=== PATIENT | female | born 1995 | race Caucasian/White ===

== ENCOUNTER 2017-09-24 22:33 | Emergency (ER) | payer MEDICAID ==
[~2017-09-24] VITALS: Ht 165.1 cm; Wt 100.2 kg
[2017-09-24 22:42] VITALS: BP 140/84
== END 2017-09-24 23:14 | disposition home or self-care (01) ==
LOC: ED 23:10
DX: M54.89 Other dorsalgia (principal); R21 Rash and other nonspecific skin eruption
CPT/HCPCS: 99283

== ENCOUNTER 2018-05-27 04:19 | Emergency (ER) | payer MEDICAID ==
[~2018-05-27] VITALS: Ht 165.1 cm; Wt 102.1 kg
[2018-05-27 04:23] VITALS: BP 134/78
[2018-05-27] MEDS ORDERED: IBUPROFEN 200 MG TABLET PO ONE (05:00)
[2018-05-27] MEDS ORDERED: DEXAMETHASONE 4 MG TABLET PO ONE (05:00)
[2018-05-27] MEDS ORDERED: DEXAMETHASONE 4 MG TABLET ONE (05:01)
[2018-05-27] MEDS ORDERED: IBUPROFEN 200 MG TABLET ONE (05:01)
== END 2018-05-27 05:38 | disposition home or self-care (01) ==
LOC: ED 05:34
DX: J02.9 Acute pharyngitis, unspecified (principal)
CPT/HCPCS: 99283

== ENCOUNTER 2018-08-25 14:12 | Observation (INO) | payer MEDICAID ==
[~2018-08-25] VITALS: Ht 165.1 cm; Wt 95.8 kg
[2018-08-25] MEDS ORDERED: SODIUM CHLORIDE FLUSH 10ML SYR IVF ONE (14:30)
[2018-08-25 14:51] LABS: BASOPHILS # (AUTO) 0.05 x10^3/uL (0-0.1); BASOPHILS % (AUTO) 0 % (0-1); EOSINOPHILS # (AUTO) 0.06 x10^3/uL (0-0.4); EOSINOPHILS % (AUTO) 1 % (1-7); LYMPHOCYTES # (AUTO) 3.96 x10^3/uL (1-3.4); LYMPHOCYTES % (AUTO) 32 % (22-44); MD NO; MEAN CORPUSCULAR HEMOGLOBIN 30.8 pg (27.0-34.8); MEAN CORPUSCULAR VOLUME 90.5 fL (80-100); MEAN PLATELET VOLUME 8.2 fL (7.4-10.4); MONOCYTES # (AUTO) 0.47 x10^3/uL (0.2-0.8); MONOCYTES % (AUTO) 4 % (2-9); NEUTROPHILS # (AUTO) 7.69 x10^3/uL (1.8-6.8); NEUTROPHILS % (AUTO) 63 % (42-75); PLATELET COUNT 385 x10^3/uL (130-400); RED BLOOD COUNT 2.74 x10^6/uL (3.82-5.3)
[2018-08-25] MEDS ORDERED: SODIUM CHLORIDE 0.9%, 500ML IVBOLUS ONE (15:00)
[2018-08-25 15:03] LABS: ALANINE AMINOTRANSFERASE 25 U/L (12-78); ALBUMIN 3.1 g/dL (3.4-5.0); ANION GAP 15 mmol/L (5-15); CALCIUM 8.4 mg/dL (8.5-10.1); CHLORIDE 104 mmol/L (98-107); CREATININE 1.14 mg/dL (0.55-1.02)
[2018-08-25 15:20] LABS: INTERNATIONAL NORMALIZED RATIO 1.05 (0.93-1.1); PROTHROMBIN TIME 10.9 Seconds (9.6-11.5)
[2018-08-25 15:22] LABS: ALKALINE PHOSPHATASE 73 U/L (45-117); BILIRUBIN,TOTAL 0.4 mg/dL (0.2-1.0); TOTAL PROTEIN 6.3 g/dL (6.4-8.2)
[2018-08-25 16:10] LABS: CULTURE INDICATED? NO; MICROSCOPIC NOT IND
[2018-08-25] MEDS ORDERED: FENTANYL PF 100 MCG/2ML ONE (16:31)
[2018-08-25] MEDS ORDERED: KETAMINE 50 MG/ML, 10ML ONE (16:32)
[2018-08-25] MEDS ORDERED: ALBUMIN HUMAN 5% 0 ML ONE (16:32)
[2018-08-25] MEDS ORDERED: MISOPROSTOL 200 MCG TABLET ONE (16:37)
[2018-08-25] MEDS ORDERED: OXYTOCIN 10 UNITS/ML, 1ML ONE (16:38)
[2018-08-25] MEDS ORDERED: METHYLERGONOVINE 0.2 MG/ML IM ONE (16:38)
[2018-08-25] MEDS ORDERED: SILVER NITRATE STICK TP ONE (16:39)
[2018-08-25] MEDS ORDERED: DOXYCYCLINE 100 MG ONE (16:52)
[2018-08-25] MEDS ORDERED: DEXAMETHASONE 4 MG/ML, 1ML ONE (17:00)
[2018-08-25] MEDS ORDERED: PROCHLORPERAZINE 5 MG/ML, 2ML IV PRN (17:00)
[2018-08-25] MEDS ORDERED: hydrALAzine 20 MG/ML, 1ML IV PRN (17:00)
[2018-08-25] MEDS ORDERED: OXYcodone 5 MG/5 ML ORAL.SOL UDC PO PRN (17:00)
[2018-08-25] MEDS ORDERED: MEPERIDINE/PF 25MG/0.5ML IVPush PRN (17:00)
[2018-08-25] MEDS ORDERED: ONDANSETRON 2MG/ML, 2ML ONE (17:00)
[2018-08-25] MEDS ORDERED: HYDROmorphone 1 MG/ML, 1ML IV PRN (17:00)
[2018-08-25] MEDS ORDERED: FENTANYL PF 100 MCG/2ML IV PRN (17:00)
[2018-08-25] MEDS ORDERED: KETOROLAC 30 MG/1 ML ONE (17:00)
[2018-08-25] MEDS ORDERED: LABETALOL 5MG/ML, 20ML IV PRN (17:00)
[2018-08-25] MEDS ORDERED: PROPOFOL 10 MG/ML, 20ML ONE (17:00)
[2018-08-25] MEDS ORDERED: DIPHENHYDRAMINE 50 MG/ML, 1ML IVPush PRN (17:00)
[2018-08-25] MEDS ORDERED: BUPIVACAINE 0.25% ONE (17:16)
[2018-08-25 18:57] VITALS: BP 98/59
== END 2018-08-25 20:00 | disposition home or self-care (01) ==
LOC: ED 16:16 → EDIP 16:27 → 4NOR 18:18
PROVIDERS: ADMIT Obstetrics & Gynecology; ATTEND Obstetrics & Gynecology
DX: O07.4 Failed attempted termination of pregnancy without complication (principal); F17.200 Nicotine dependence, unspecified, uncomplicated; D64.9 Anemia, unspecified
CPT/HCPCS: 36415; 58120; 76830; 80053; 81003; 84702; 85025; 85610; 85730; 86850; 86900; 88305; 93005; 99291; G0378; J1100; J1885; J2405; J2704; J3010; J3490; P9045; J2210; J2590

== ENCOUNTER 2019-04-26 02:04 | Emergency (ER) | payer MEDICAID ==
[~2019-04-26] VITALS: Ht 165.1 cm; Wt 90.0 kg
[2019-04-26 02:07] VITALS: BP 131/74
--- NOTE | 2019-04-26 02:23 | NUR ---
pt got out of wheelchair and lay down in lobby, JR and myself went and told her to get back in the wheelchair, gave her a hand up, at which point she stated that we were pulling too hard, hurting her arms, and she was going to [facility] instead. declined to be brought back to a room
== END 2019-04-26 02:40 ==
LOC: ED 02:29
DX: R11.10 Vomiting, unspecified (principal); R42 Dizziness and giddiness; Z53.21 Procedure and treatment not carried out due to patient leaving prior to being seen by health care provider

== ENCOUNTER 2019-04-26 06:41 | Emergency (ER) | payer MEDICAID ==
[~2019-04-26] VITALS: Ht 165.1 cm; Wt 97.0 kg
--- NOTE | 2019-04-26 06:58 | NUR ---
PT AMBULATED TO ROOM. ER PROVIDER AT PT'S BEDSIDE UPDATING PT ON POC. PT IS MOVING AROUND IN BED STATING SHE HAS PAIN IN HER ABDOMEN. PT IS CONVERSING WITH PROVIDER BUT STATING "I CAN'T TALK THIS PAIN IS SO BAD. I NEED SOME HELP." CALL LIGHT IN REACH. VSS.
[2019-04-26] MEDS ORDERED: ONDANSETRON ODT 4 MG PO ONE (07:00)
[2019-04-26] MEDS ORDERED: FAMOTIDINE 20 MG TABLET PO ONE (07:00)
[2019-04-26] MEDS ORDERED: MAALOX/HYOSCYAMINE/LIDOCAINE 45 ML BTL PO ONE (07:00)
[2019-04-26] MEDS ORDERED: ONDANSETRON ODT 4 MG ONE (07:07)
[2019-04-26] MEDS ORDERED: MAALOX/HYOSCYAMINE/LIDOCAINE 45 ML BTL ONE (07:07)
[2019-04-26] MEDS ORDERED: FAMOTIDINE 20 MG TABLET ONE (07:07)
--- NOTE | 2019-04-26 07:11 | NUR ---
PT MEDICATED PER EMAR. LAB AT BEDSIDE.
[2019-04-26 07:25] LABS: MEAN CORPUSCULAR HEMOGLOBIN 26.5 pg (27.0-34.8); MEAN CORPUSCULAR HGB CONC 31.9 g/dL (32.4-35.8); MEAN CORPUSCULAR VOLUME 83.1 fL (80-100); MEAN PLATELET VOLUME 7.8 fL (7.4-10.4); PLATELET COUNT 416 x10^3/uL (130-400); RED BLOOD COUNT 4.87 x10^6/uL (3.82-5.3)
--- NOTE | 2019-04-26 07:25 | NUR ---
PT GIVEN ICE AT THIS TIME. PT VOMITING.
[2019-04-26 07:31] LABS: ALANINE AMINOTRANSFERASE 23 U/L (12-78); ALBUMIN 4.3 g/dL (3.4-5.0); ANION GAP 12 mmol/L (5-15); CALCIUM 9.2 mg/dL (8.5-10.1); CHLORIDE 108 mmol/L (98-107)
[2019-04-26 07:35] LABS: ALKALINE PHOSPHATASE 97 U/L (45-117); BILIRUBIN,TOTAL 0.6 mg/dL (0.2-1.0); TOTAL PROTEIN 8.1 g/dL (6.4-8.2)
[2019-04-26 07:42] LABS: BASOPHILS # (AUTO) 0.01 x10^3/uL (0-0.1); BASOPHILS % (AUTO) 0 % (0-1); EOSINOPHILS # (AUTO) 0.02 x10^3/uL (0-0.4); EOSINOPHILS % (AUTO) 0 % (1-7); LYMPHOCYTES # (AUTO) 1.37 x10^3/uL (1-3.4); LYMPHOCYTES % (AUTO) 11 % (22-44); MD SCAN; MONOCYTES # (AUTO) 0.32 x10^3/uL (0.2-0.8); MONOCYTES % (AUTO) 3 % (2-9); NEUTROPHILS # (AUTO) 10.65 x10^3/uL (1.8-6.8); NEUTROPHILS % (AUTO) 86 % (42-75)
[2019-04-26] MEDS ORDERED: PROMETHAZINE 25 MG/ML, 1ML IM ONE (08:00)
[2019-04-26] MEDS ORDERED: PROMETHAZINE 25 MG/ML, 1ML ONE (08:11)
--- NOTE | 2019-04-26 08:27 | NUR ---
PT MEDICATED PER EMAR AT THIS TIME. VSS. CALL LIGHT IN REACH.
[2019-04-26] MEDS ORDERED: SODIUM CHLORIDE 0.9% 1,000ML IVBOLUS ONE (08:30)
[2019-04-26] MEDS ORDERED: SODIUM CHLORIDE FLUSH 10ML SYR IVF ONE (08:30)
--- NOTE | 2019-04-26 08:52 | NUR ---
BEDSIDE REPORT FROM MILTON HERNANDEZ AND MILTON MAE. ASSUMED CARE OF PATIENT AT THIS TIME. PATIENT RESTING IN [facility].
--- NOTE | 2019-04-26 09:14 | NUR ---
PATIENT HAVING EMESIS EPISODE, UNABLE TO DRINK WATER FOR PO CHALLENGE, MD AWARE, AWAITING FURTHER ORDERS.
[2019-04-26] MEDS ORDERED: METOCLOPRAMIDE 5 MG/ML, 2ML ONE (09:29)
[2019-04-26] MEDS ORDERED: METOCLOPRAMIDE 5 MG/ML, 2ML IVPush ONE (09:30)
[2019-04-26 10:38] VITALS: BP 130/68
--- NOTE | 2019-04-26 10:39 | NUR ---
PATIENT PASSED PO CHALLENGE WITH NO EMESIS. PATIENT C/O ABD PAIN AT THIS TIME, MD AWARE. VS UPDATED IN CHART, AWAITING FURTHER ORDERS. [id number].
--- NOTE | 2019-04-26 11:17 | NUR ---
Patient/Caregiver given discharge instructions and they have confirmed that they understand the instructions. Patient ambulatory with steady gait.
== END 2019-04-26 11:19 | disposition home or self-care (01) ==
LOC: ED 08:09
DX: R11.2 Nausea with vomiting, unspecified (principal); R10.13 Epigastric pain
CPT/HCPCS: 36415; 76700; 80053; 80307; 83690; 84703; 85025; 96361; 96372; 96374; 99284; J2550; J2765; J7030; Q0162

== ENCOUNTER 2019-12-14 18:52 | Emergency (ER) | payer MEDICAID ==
[~2019-12-14] VITALS: Ht 165.1 cm; Wt 94.4 kg
[2019-12-14 18:55] VITALS: BP 153/87
--- NOTE | 2019-12-14 18:59 | NUR ---
PT IN TRIAGE, STATED " I'M NOT ANSWERING ANY MORE QUESTIONS UNTIL I CAN GET PAIN MEDICATION OR BE SEEN"
[2019-12-14] MEDS ORDERED: HYDROcodone/APAP 5/325 TABLET PO ONE (19:30)
[2019-12-14] MEDS ORDERED: LIDOCAINE 1%, 10ML INFIL ONE (19:30)
[2019-12-14] MEDS ORDERED: HYDROcodone/APAP 5/325 TABLET ONE (19:36)
[2019-12-14] MEDS ORDERED: LIDOCAINE-MPF 1%, 5ML ONE (19:36)
--- NOTE | 2019-12-14 20:05 | NUR ---
PA IN ROOM NUMBED LIP TECH IN ROOM IRRIGATED.
--- NOTE | 2019-12-14 20:15 | NUR ---
DELFINA IN ROOM TO SUTURE.
== END 2019-12-14 21:05 | disposition home or self-care (01) ==
LOC: ED 21:04
DX: S01.511A Laceration without foreign body of lip, initial encounter (principal); X58.XXXA Exposure to other specified factors, initial encounter; Y93.89 Activity, other specified; Y92.328 Other athletic field as the place of occurrence of the external cause; Y99.8 Other external cause status
CPT/HCPCS: 40650; 99284

== ENCOUNTER 2021-03-22 19:30 | Emergency (ER) | payer MEDICAID ==
[~2021-03-22] VITALS: Ht 165.1 cm; Wt 104.0 kg
[2021-03-22 19:35] VITALS: BP 145/77
--- NOTE | 2021-03-22 19:53 | NUR ---
Patient presents to ER with no complaints but states she wants to get check for STDs. Patient states her boyfriend was dx with STI so she wants to get checked. Patient has no complaints including vaginal pain, bleeding, or discharge. Patient in NAD.
[2021-03-22] MEDS ORDERED: CEFTRIAXONE 1,000 MG IM ONE (21:00)
[2021-03-22] MEDS ORDERED: DOXYCYCLINE 100MG TABLET PO ONE (21:00)
[2021-03-22] MEDS ORDERED: CEFTRIAXONE 1,000 MG ONE (21:01)
[2021-03-22 21:02] LABS: HCG UR SG 1.033 (1.003-1.030)
[2021-03-22] MEDS ORDERED: DOXYCYCLINE 100MG TABLET ONE (21:15)
== END 2021-03-22 21:30 | disposition home or self-care (01) ==
LOC: ED 20:32
DX: Z20.2 Contact with and (suspected) exposure to infections with a predominantly sexual mode of transmission (principal); F17.210 Nicotine dependence, cigarettes, uncomplicated
CPT/HCPCS: 81025; 87491; 87591; 96372; 99283; 99406; J0696; 96361